=== PATIENT | female | born 1980 | race Two or more races ===

== ENCOUNTER → 2024-07-30 | Outpatient (CLI) | payer BC, SELFPAY ==
[2024-07-30 14:36] LABS: Basophils % (Auto) 1 % (0-2.5); Eosinophils # (Auto) 0.3 Thou/mm3 (0.0-0.5); Eosinophils % (Auto) 3 % (0-10); Hematocrit 36.6 % (36.0-46.0); Hemoglobin 12.6 g/dL (12.0-16.0); Immature Granulocytes % (Auto) 0 % (0-0); Immature Granulocytes Auto 0.02 Thou/mm3 (0.00-0.00); Lymphocytes # (Auto) 1.9 Thou/mm3 (1.0-4.8); Lymphocytes % (Auto) 25 % (10-50); Mean Corpuscular HGB Conc 34.4 g/dl (31.0-37.0); Mean Corpuscular Hemoglobin 33.8 pg (25.0-35.0); Mean Corpuscular Volume 98 fL (80-100); Monocytes # (Auto) 0.6 Thou/mm3 (0.0-0.8); Monocytes % (Auto) 8 % (0-12); Neutrophils # (Auto) 4.9 Thou/mm3 (1.8-7.7); Neutrophils % (Auto) 64 % (37-80); Nucleated Red Blood Cell % 0 /100 WBC (0); Platelet Count 105 Thou/mm3 (140-440); RDW Standard Deviation 45.6 fL (36.4-46.3); Red Blood Count 3.73 Miln/mm3 (4.00-5.20); White Blood Count 7.7 Thou/mm3 (3.6-11.0)
== END | disposition home or self-care (01) ==
LOC: COPL 13:28
PROVIDERS: PCP Family Medicine; Referring Provider Family Medicine; Visit Provider Family Medicine
DX: D50.0 Iron deficiency anemia secondary to blood loss (chronic) (principal)
CPT/HCPCS: 36415; 85025

== ENCOUNTER → 2024-08-26 | Outpatient (CLI) | payer BC, SELFPAY ==
[2024-08-26 11:44] LABS: Collection Type, Urine Clean Catch
[2024-08-26 12:42] LABS: Bacteria,Urine 2+; Bilirubin,Urine Negative (Negative); Blood,Urine 2+ (Negative); Color,Urine Yellow (Lt Yel-Yel); Glucose, Urine Negative (Negative); Hyaline Casts,Urine < 1 /hpf (0-1); Ketones,Urine 1+ (Negative); Leukocyte Esterase,Urine Positive (Negative); Nitrite,Urine Negative (Negative); Protein,Urine 1+ (Neg - Trace); RBC,Urine 17 /hpf (0-3); Specific Gravity,Urine 1.023 (1.001-1.035); Squamous Epithelial Cell,Urine 9 /hpf (0-5); Urobilinogen,Urine Negative mg/dL (0.0-1.0); WBC,Urine 189 /hpf (0-5)
[2024-08-26 13:01] LABS: Clarity,Urine Hazy (Clear/Hazy)
== END | disposition home or self-care (01) ==
LOC: SLDO 11:12
PROVIDERS: PCP Family Medicine; Referring Provider Family Medicine; Visit Provider Family Medicine
DX: N30.00 Acute cystitis without hematuria (principal)
CPT/HCPCS: 81001; 87077; 87086; 87186

== ENCOUNTER 2024-08-27 09:27 | Emergency (ER) | payer BC, SELFPAY ==
[2024-08-27] VITALS (44 sets, daily range): BP systolic 81–116; BP diastolic 50–75; PULSE 95–112; RESP 16–88; TEMP 36.6–37.6; O2SAT 86–100; BMI 31.1
--- NOTE | 2024-08-27 | XR_ITS ---
Examination: MRI brain without intravenous contrast. Date and time of exam: August 27, 2024 1355 hours INDICATIONS: Bilateral leg weakness and headaches onset today, CT brain scan August 27, 2024 11:09 AM brainstem infarct age-indeterminate Technique: Multiple axial and sagittal images of the brain obtained. Siemens high-resolution 1.5 Samia short bore scanners utilized. Sagittal sections, T1-weighted, TR 500, TE 14, are performed. Axial sections proton-density and T2-weighted have been obtained. Inversion recovery axial images, TR 9, 260, TE 111, TI 2500. Diffusion weighted images, axial sections, TR 4800, TE 128, B value 1000 Axial sections, ADC map, TR 4800, TE 128 Findings: Enlargement of the sella turcica is not present. The optic chiasm and infundibular are not remarkable. Prepontine and interpeduncular cisterns are not enlarged. There is no localized enlargement of the medulla or chuck. Fourth ventricle and cerebellar tonsils appear normal in position. No subacute area of hemorrhage density is seen. Mass in the cerebellopontine angle region is not evident. Globes symmetrical. Orbital musculature including medial lateral rectus muscles do not exhibit abnormality. Diffusion-weighted images demonstrate no focus of restricted diffusion. Increased white matter signal not seen Mass effect upon the ventricular system is not identified. Impression: No brainstem or other acute infarct is confirmed No MRI findings diagnostic for demyelinating disease
--- NOTE | 2024-08-27 09:44 | XR_ITS ---
Examination: AP chest single view TECHNIQUE: AP portable upright chest single view Exam date and time: August 27, 2024 1049 hours INDICATIONS: Shortness of breath today. FINDINGS: Reduced inspiratory effort Normal heart size Lungs are clear. Mild osteopenia IMPRESSION: No active disease
--- NOTE | 2024-08-27 09:44 | XR_ITS ---
Examination: CT brain head without contrast. 2-D sagittal coronal reconstructions Date and time of exam:August 27, 2024 1109 hours Comparison August 26, 2022 INDICATIONS: Mild asymmetric CT: Altered mental status today CTDI: vol (mGy):52.6 DLP: (mGycm):1076 Technique: Multiple CT axial sections of the brain have been obtained, 5 mm slice thickness. Contrast has not been administered. 2-D sagittal, coronal reconstructions have been obtained Low dose protocols were performed. One or more of the following dose reduction techniques were used; automated exposure control, adjustment of the mA and/or KV according to patient size, use of iterative reconstruction technique. Findings: No significant ventricular enlargement. 13 mm infarct left brainstem pontine level, age indeterminate, axial image 31 Intra-axial or extra-axial hemorrhage density is not seen. No mass effect or midline shift Basal cisterns are not remarkable. Fourth ventricle is midline. Cranial vault intact. 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
--- NOTE | 2024-08-27 09:46 | EKG_ITS ---
[facility] Test Date: 2024-08-27 Pat Name: DESTIN GALICIA Department: Room: - Gender: Female Pharmacy Picking Technician: : 1980 Requested By: Andrzej Elizondo Order Number: [id number] Reading MD: Andrzej Elizondo Measurements Intervals Addison Rate: 95 P: 52 DC: 146 QRS: -1 QRSD: 89 T: 17 QT: 349 QTc: 439 Interpretive Statements SINUS RHYTHM Compared to ECG 04/24/2022 13:55:43 No significant changes /store/S0/[id number].pdf
--- NOTE | 2024-08-27 09:50 | PD.EDABDPN ---
ED Abdominal Pain RME/HPI General Chief Complaint: Abdominal Pain Stated complaint: diffuse ab pain x 3 days, legs weak 10 pm 08/26/24 Time seen by provider: 08/27/24 09:34 Arrival date/time: 08/27/24 09:27 RME / HPI RME / HPI narrative: This section includes all my notes and documentations, including HPI, PE, and ED course.? Andrzej Iraheta MD HPI: 43 year old female with history of hypertension presents to the ED for evaluation of abdominal pain beginning 3 days ago. Described as aching in sensation that is located most across her lower abdomen, L>R. Reportedly had consulted with PCP yesterday who diagnosed her with a UTI and started on Ciprofloxacin which she took the first dose of yesterday. Patient additionally complains of pain in her back that radiates down her left leg. No injury or trauma. Reports subjective fever and chills and aches and severe malaise with severely decreased oral intake. Feels lightheaded and faint especially when she gets up. No other complaints. ROS: All negative except as documented in HPI. Physical Exam: General:? Alert and oriented.? Appearance of severe malaise noted. Eyes:? Conjunctivae and lids clear.? EOMI.? PERRL. ENT:? No nasal congestion.? Pharynx normal.? Tympanic membrane normal bilaterally.??? Neck:? Supple.? No carotid bruit.? No JVD.?? Heart:? RRR.? Lungs:? No respiratory distress.? Good air movement.? No rhonchi, wheezing, rales.?? Abdomen:? Soft with equivocal tenderness, difficult to localize.? Normal bowel sounds.? No distension.? No rebound or guarding.?? Back:? No CVA tenderness.?? Legs:? No clubbing, cyanosis, edema.? Skin:? Warm and dry.?? Neuro:? Alert and oriented X 3.? Cranial Nerves II-XII grossly intact.? No peripheral motor deficits. I reviewed all diagnostic test results. My interpretation of the EKG is?sinus rhythm with nonspecific ST?T changes. My interpretation of the chest x-ray is no acute findings. My review of the head CT report is?13 mm brainstem infarct. My review of the brain MRI report is no acute findings. My review of the chest/abdomen/pelvis CT report is left hydronephrosis secondary to 6 mm proximal left ureteral calculus. Blood tests remarkable for WBC 17.7, ESR 35, D-dimer > 3820, Cr 3.0, LA 4.9, Mg 1.1, CRP 19.6, BNP 211, procalcitonin 19.16, and negative troponin. ABG showed pH 7.31, pCO2 34, pHCO3 17. UA showed leukocyte esterase and many RBC, many WBC, and 3+ bacteria. COVID/influenza/RSV/strep/mono negative. At this point, diagnoses include: Sepsis, UTI (urinary tract infection), Left ureteral stone, Hypomagnesemia, BENNIE (acute kidney injury), Metabolic acidosis, Hypotension Treatment here included?IV fluid, Levophed drip, bicarb, MgSO4 2 gram IV, Rocephin, Toradol, and diazepam. At 6 PM on 08/27/2024, the care of the patient was transferred to Dr. MICHELE. Andrzej Iraheta MD Related Data Home Medications ?Medication ?Instructions ?Recorded ?Confirmed metoprolol tartrate 50 mg tablet 50 mg PO BID 06/06/24 06/06/24 Previous Rx's ?Medication ?Instructions ?Recorded ibuprofen 800 mg tablet 800 mg PO TID PRN pain #30 tabs 03/22/23 Allergies Allergy/AdvReac Type Severity Reaction Status Date / Time hydrocodone Allergy Mild Rash Verified 08/27/24 09:28 tranexamic acid Allergy Mild Vomiting Verified 08/27/24 09:28 morphine Allergy Rash Verified 08/27/24 09:28 Review of Systems Review of Systems Systems Reviewed: All systems reviewed, normal except as documented Past Medical History Past Medical History NEUROLOGIC: Positive Neurological Disorders and Migraine CARDIAC: Positive Hypertension GASTROINTESTINAL: Positive Gastrointestinal Disorders and Gall Bladder Disease GENITOURINARY: Positive Genitourinary Disorders and Kidney Stones REPRODUCTIVE: Positive Previous Pregnancies MUSCULOSKELETAL: Positive Musculoskeletal Disorders and Fractures OTHER HISTORY: Positive Falls and Chicken Pox Family History FAMILY HISTORY: Positive Family Cardiac Disorders and Family Surgery Surgical History SURGICAL: Negative Pacemaker Social History SMOKING STATUS: Never smoker SUBSTANCE USE: does not use ED Exam Narrative Physical exam: As noted in HPI Course Quality Measures Current suspected stage: septic shock (LA >4 and/or hypotension) IVF 30 ml/kg given for lactic acid >4 and/or hypotension: yes Vasopressors initiated: Yes Sepsis reassessment completed at (date): 08/27/24 Sepsis reassessment completed at (time): 12:13 Possible source: genitourinary Blood cultures ordered: completed in ED Antibiotic ordered: Yes Pertinent labs: 08/27/24 08/27/24 10:01 14:42 Lactic Acid 4.9 H* mMol/L 3.8 H mMol/L (0.4-2.0) (0.4-2.0) Procalcitonin 19.16 H ng/ml (0.0-0.49) sepsis Orders Category Date Time Status Bedside COVID-19 Antigen Test NOW Care 08/27/24 10:58 Completed Bedside Influenza A&B Antigen Test NOW Care 08/27/24 10:[address] Screening NOW Care 08/27/24 09:44 Completed EKG (ED ONLY) *Do not use* NOW Care 08/27/24 09:46 Completed Jerome [Urinary Catheter] QS Care 08/27/24 10:45 Completed MRI Screening NOW Care 08/27/24 12:06 Completed NPO NOW Care 08/27/24 22:20 Completed Saline [Insert IV] NOW Care 08/27/24 09:43 Completed Referral - Student Driving Instructor Stat Cons 08/27/24 14:32 Active Diet NPO (NOW) Diet 08/27/24 22:[address] chest abdomen pelvis wo Stat Exams 08/27/24 10:[address] head/brain wo con Stat Exams 08/27/24 09:44 Completed EKG (ED Only) Stat Exams 08/27/24 09:46 Draft MR head/brain wo con Stat Exams 08/27/24 Completed NM VQ scan Stat Exams 08/27/24 11:01 Ordered XR chest 1V portable Stat Exams 08/27/24 09:44 Completed ABG [Arterial Blood Gas] Stat Lab 08/27/24 10:47 Completed Alcohol, Blood Medical Stat Lab 08/27/24 10:01 Completed Ammonia Stat Lab 08/27/24 10:01 Completed Amylase Stat Lab 08/27/24 10:01 Completed BNP [B-Type Natriuretic Peptide] Stat Lab 08/27/24 10:01 Completed Blood Culture (Lab) Stat Lab 08/27/24 10:10 Received CBC Stat Lab 08/27/24 10:01 Completed CMP [Comprehensive Metabolic Panel] Stat Lab 08/27/24 10:01 Completed CRP [C-Reactive Protein] Stat Lab 08/27/24 10:01 Completed D-Dimer Stat Lab 08/27/24 10:01 Completed ESR [Sed Rate (ESR)] Stat Lab 08/27/24 10:01 Completed HCG,Qualitative Serum Stat Lab 08/27/24 10:01 Completed Lactate (Lactic Acid) Stat Lab 08/27/24 10:01 Completed Lactic Acid, 3 HR Stat Lab 08/27/24 14:42 Completed Lipase Stat Lab 08/27/24 10:01 Completed Magnesium Stat Lab 08/27/24 10:01 Completed Wayne Screen Stat Lab 08/27/24 10:01 Completed Procalcitonin Stat Lab 08/27/24 10:01 Completed RSV [Respiratory Syncytial Virus Ag] Stat Lab 08/27/24 15:07 Completed Strep A Rapid Stat Lab 08/27/24 15:07 Completed TSH [Thyroid Stimulating Hormone] Stat Lab 08/27/24 10:01 Completed Troponin I Stat Lab 08/27/24 10:01 Completed UA [Urinalysis] Stat Lab 08/27/24 10:46 Completed Diazepam Inj [Valium Inj] Med 08/27/24 14:26 Discontinued 5 mg IV X1 ONE Ketorolac Inj [Toradol Inj] Med 08/27/24 10:06 Discontinued 30 mg IVP X1 ONE Magnesium Sulfate 2 GM Ivpb [Magnesium Sulfate Ivpb] Med 08/27/24 10:59 Discontinued 2 gm in 50 ml IV X1 Norepinephrine/D5W 8mg/250ml [Levophed in D5W 8mg/250ml Med 08/27/24 11:43 Discontinued ] 8 mg in 250 ml IV 0.05 mcg/kg/min Norepinephrine/D5W 8mg/250ml [Levophed in D5W 8mg/250ml Med 08/27/24 12:09 Discontinued ] 8 mg in 250 ml IV 0.05 mcg/kg/min Ondansetron Inj [Zofran Inj] Med 08/27/24 10:06 Discontinued 4 mg IV X1 ONE Ondansetron Inj [Zofran Inj] Med 08/27/24 19:45 Discontinued 4 mg IV X1 ONE Sodium Bicarb 8.4% SYR Med 08/27/24 11:47 Discontinued 50 ml IV X1 ONE Sodium Chloride 0.9% 1000 ml [Ns] 1,000 ml Med 08/27/24 10:06 Discontinued IV 999 mls/hr Sodium Chloride 0.9% 1000 ml [Ns] 1,000 ml Med 08/27/24 10:16 Discontinued IV 999 mls/hr Sodium Chloride 0.9% 1000 ml [Ns] 1,000 ml Med 08/27/24 10:17 Discontinued IV 999 mls/hr Sodium Chloride 0.9% 1000 ml [Ns] 1,000 ml Med 08/27/24 13:40 Discontinued IV 999 mls/hr Vancomycin Inj 1,000 mg Med 08/27/24 18:24 Discontinued Sodium Chloride 0.9% 250 ml [Ns] 250 ml IV X1 Vancomycin Pharmacy to Dose Med 08/27/24 18:12 Discontinued 1 each IV X1 ONE Vancomycin/Ns 1 gm Ivpb 200 ml Med 08/27/24 18:30 Discontinued IV X1 cefTRIAXone/D5w 1gm IV premix [Rocephin/D5w 1gm IV Med 08/27/24 10:16 Discontinued premix] 50 ml IV X1 fentaNYL INJ [Sublimaze Inj] Med 08/27/24 19:45 Discontinued 100 mcg IVP X1 ONE Oxygen Delivery PRN RT 08/27/24 20:31 Completed Vital Signs Vital signs: Vital Signs Temperature 98.7 F 08/27/24 09:53 Pulse Rate 98 08/27/24 09:53 Respiratory Rate 22 H 08/27/24 09:53 Blood Pressure 90/60 08/27/24 09:53 Pulse Oximetry (%) 97 08/27/24 09:53 Oxygen Delivery Method Room Air 08/27/24 09:53 Pulse ox is 97% on room air which is adequate. Abdominal Pain MDM MDM Narrative MDM Narrative:: Olga Miller am scribing for and in the presence of Dr. Iraheta. Patient data External records reviewed:: [facility] previous records (I reviewed admission from 06/06/24 through 06/07/24) Clinical information provided by:: patient Social determinants that could affect healthcare access:: none Patient has the following chronic illnesses:: Hypertension How is presenting disease/condition affected by chronic disease/condition?: uneffected by Evaluation data The following diagnostics were reviewed and interpreted by me:: lab results, radiology exam(s) and EKG tracing(s) (My interpretation of the EKG: NSR (95 bpm) with no ST-T changes. Andrzej Iraheta MD) Lab and/or radiology exams considered but not ordered:: None Interpretation Summary: Sepsis, UTI (urinary tract infection), Left ureteral stone, Hypomagnesemia, BENNIE (acute kidney injury), Metabolic acidosis, Hypotension Medications / Prescriptions Medications or Prescriptions considered but not ordered:: None Medication administrations:: Medication Administration History Discontinued Medications Diazepam (Diazepam Inj 5 Mg/Ml Vial 2 Ml) 5 mg IV X1 ONE Stop: 08/27/24 14:27 Last Admin: 08/27/24 15:01 Dose: 5 mg Documented By: DO Fentanyl Citrate (Fentanyl Cit Inj 50 Mcg/Ml Amp 2ml) 100 mcg IVP X1 ONE Stop: 08/27/24 19:46 Last Admin: 08/27/24 20:00 Dose: 100 mcg Documented By: BB Sodium Chloride (Ns) 1,000 mls @ 999 mls/hr IV .Q1H1M ONE Stop: 08/27/24 11:06 Last Infusion: 08/27/24 11:00 Dose: Infused Documented By: Admin: 08/27/24 10:12 Dose: 999 mls/hr Documented By: EF Ceftriaxone Sodium/Dextrose (Rocephin/D5w 1gm Iv Premix) 50 mls @ 100 mls/hr IV X1 ONE Stop: 08/27/24 10:45 Last Infusion: 08/27/24 11:35 Dose: Infused Documented By: Admin: 08/27/24 10:41 Dose: 100 mls/hr Documented By: EF Sodium Chloride (Ns) 1,000 mls @ 999 mls/hr IV .Q1H1M ONE Stop: 08/27/24 11:16 Last Infusion: 08/27/24 11:40 Dose: Infused Documented By: Admin: 08/27/24 10:22 Dose: 999 mls/hr Documented By: EF Sodium Chloride (Ns) 1,000 mls @ 999 mls/hr IV .Q1H1M ONE Stop: 08/27/24 11:17 Last Infusion: 08/27/24 11:58 Dose: Infused Documented By: Admin: 08/27/24 10:57 Dose: 999 mls/hr Documented By: EF Magnesium Sulfate (Magnesium Sulfate Ivpb) 2 gm in 50 mls @ 25 mls/hr IV X1 ONE Stop: 08/27/24 12:58 Last Infusion: 08/27/24 13:40 Dose: Infused Documented By: Admin: 08/27/24 11:36 Dose: 25 mls/hr Documented By: EF Norepinephrine/Dextrose (Levophed In D5w 8mg/250ml) 8 mg in 250 mls @ 7.229 mls/hr IV .Q24H PRN; Protocol PRN Reason: PER PROTOCOL Stop: 09/26/24 11:42 Norepinephrine/Dextrose (Levophed In D5w 8mg/250ml) 8 mg in 250 mls @ 7.229 mls/hr IV .Q24H PRN; Protocol PRN Reason: PER PROTOCOL Stop: 09/26/24 12:08 Last Titration: 08/27/24 22:54 Dose: 0.09 mcg/kg/min, 13.012 mls/hr Documented By: Titration: 08/27/24 22:00 Dose: 0.09 mcg/kg/min, 13.012 mls/hr Documented By: Admin: 08/27/24 21:59 Dose: 0.09 mcg/kg/min, 13.012 mls/hr Documented By: Titration: 08/27/24 21:59 Dose: Infused Documented By: Titration: 08/27/24 21:00 Dose: 0.09 mcg/kg/min, 13.012 mls/hr Documented By: Titration: 08/27/24 20:00 Dose: 0.09 mcg/kg/min, 13.012 mls/hr Documented By: Titration: 08/27/24 19:00 Dose: 0.09 mcg/kg/min, 13.012 mls/hr Documented By: Titration: 08/27/24 18:00 Dose: 0.11 mcg/kg/min, 15.904 mls/hr Documented By: Titration: 08/27/24 17:00 Dose: 0.11 mcg/kg/min, 15.904 mls/hr Documented By: Titration: 08/27/24 16:00 Dose: 0.11 mcg/kg/min, 15.904 mls/hr Documented By: Titration: 08/27/24 15:00 Dose: 0.11 mcg/kg/min, 15.904 mls/hr Documented By: Titration: 08/27/24 13:43 Dose: 0.11 mcg/kg/min, 15.904 mls/hr Documented By: Titration: 08/27/24 13:38 Dose: 0.11 mcg/kg/min, 15.904 mls/hr Documented By: Titration: 08/27/24 13:33 Dose: 0.11 mcg/kg/min, 15.904 mls/hr Documented By: Titration: 08/27/24 13:16 Dose: 0.09 mcg/kg/min, 13.012 mls/hr Documented By: Titration: 08/27/24 13:11 Dose: 0.09 mcg/kg/min, 13.012 mls/hr Documented By: Titration: 08/27/24 12:21 Dose: 0.07 mcg/kg/min, 10.121 mls/hr Documented By: Titration: 08/27/24 12:16 Dose: 0.07 mcg/kg/min, 10.121 mls/hr Documented By: Titration: 08/27/24 12:11 Dose: 0.07 mcg/kg/min, 10.121 mls/hr Documented By: Admin: 08/27/24 12:06 Dose: 0.05 mcg/kg/min, 7.229 mls/hr Documented By: EF Sodium Chloride (Ns) 1,000 mls @ 999 mls/hr IV .Q1H1M ONE Stop: 08/27/24 14:40 Last Infusion: 08/27/24 14:41 Dose: Infused Documented By: Admin: 08/27/24 13:40 Dose: 999 mls/hr Documented By: DO Vancomycin HCl 1,000 mg/ (Sodium Chloride) 250 mls @ 150 mls/hr IV X1 ONE Stop: 08/27/24 20:03 Last Admin: 08/27/24 18:33 Dose: Not Given Documented By: DO Non-Admin Reason: Duplicate Medication on eMAR Vancomycin/Sodium Chloride (Vancomycin/Ns 1 Gm Ivpb) 200 mls @ 120 mls/hr IV X1 ONE Stop: 08/27/24 20:09 Last Infusion: 08/27/24 20:33 Dose: Infused Documented By: Admin: 08/27/24 18:37 Dose: 120 mls/hr Documented By: EF Ketorolac Tromethamine (Ketorolac Inj 30 Mg/Ml Vial) 30 mg IVP X1 ONE Stop: 08/27/24 10:07 Last Admin: 08/27/24 10:12 Dose: 30 mg Documented By: EF Ondansetron HCl (Ondansetron Inj 2 Mg/Ml Inj 2 Ml) 4 mg IV X1 ONE; Protocol Stop: 08/27/24 10:07 Last Admin: 08/27/24 10:11 Dose: 4 mg Documented By: EF Ondansetron HCl (Ondansetron Inj 2 Mg/Ml Inj 2 Ml) 4 mg IV X1 ONE Stop: 08/27/24 19:46 Last Admin: 08/27/24 20:25 Dose: 4 mg Documented By: BB Pharmacy Consult (Vancomycin Pharmacy To Dose 1 Each Each) 1 each IV X1 ONE Stop: 08/27/24 18:13 Last Admin: 08/27/24 18:28 Dose: Not Given Documented By: DO Non-Admin Reason: Duplicate Medication on eMAR Sodium Bicarbonate (Sodium Bicarb Inj 8.4% Syr 50 Ml Syringe) 50 ml IV X1 ONE Stop: 08/27/24 11:48 Last Admin: 08/27/24 12:16 Dose: 50 ml Documented By: EF See chart Consultations Consultation(s) initiated? (list below): No Consultation #1 (Physician, Specialty, Details): I spoke with transfer nurse at [facility]. Discussed patients PMHx, HPI, ED course, exam findings, labs, and radiology results. Waiting for their urologist to call back. Diagnosis Differential diagnosis abdominal pain: abdominal pain, acute appendicitis, calculus of kidney, constipation, diverticulitis, endometriosis, gastroenteritis, pancreatitis, small bowel obstruction and other (UTI, sepsis, pyelonephritis, CVA, CO) Most likely diagnosis given after review of the tests above:: Sepsis, UTI (urinary tract infection), Left ureteral stone, Hypomagnesemia, BENNIE (acute kidney injury), Metabolic acidosis, Hypotension Admission Indicated Admission indicated?: not indicated Explain why admission is indicated or not indicated:: No urology service here Admission Request Was there a request for admission?: No Disposition Plan Disposition Plan: Transfer Critical Care Time Critical Care Time Critical Care Time: Yes Total Critical Care Time (min.): 48 Attestation: Due to a high probability of clinically significant, life threatening deterioration, the patient required my highest level of preparedness to intervene emergently and I personally spent this critical care time directly and personally managing the patient. This critical care time included obtaining a history; examining the patient; ordering and review of studies; arranging urgent treatment with development of a management plan; evaluation of patient's response to treatment; frequent reassessment; and discussions with family and other providers. It was exclusive of separately billable procedures and treating other patients and teaching time. Andrzej Iraheta MD Discharge Plan Plan Patient Disposition: [facility] Being Transferred to: [facility] Service Needed for Transfer: Urology Disposition Comment: ED to ED, Dr. Grimes urology Prescriptions/Referrals Prescriptions/Med Rec: No Action ibuprofen 800 mg tablet 800 mg PO TID PRN (Reason: pain) Qty: 30 0RF metoprolol tartrate 50 mg tablet 50 mg PO BID Patient Comments: TAKE 1 TABLET BY MOUTH TWICE A DAY Referrals: Kellee Corea MD [Primary Care Provider] - In 1 week Problem List Clinical Impression: Sepsis, UTI (urinary tract infection), Left ureteral stone, Hypomagnesemia, BENNIE (acute kidney injury), Metabolic acidosis, Hypotension Patient/Caregiver Discharge Instructions Print Language: Cypriot Stand Alone Forms: [facility] Award Info., Patient Portal Info Letter
[2024-08-27] MEDS: ONDANSETRON INJ 2 MG/ML INJ 2 ML 4 MG IV ×2 (10:11→20:25)
[2024-08-27] MEDS: KETOROLAC INJ 30 MG/ML VIAL IVP (10:12)
[2024-08-27] MEDS: SODIUM CHLORIDE 0.9% 1000 ML 1,000 ML 999 ML IV ×4 (10:12→13:40)
[2024-08-27 10:14] LABS: Lactate (Lactic Acid) 4.9 mMol/L (0.4-2.0)
[2024-08-27 10:23] LABS: Basophils # (Auto) 0.1 Thou/mm3 (0.0-0.2); Basophils % (Auto) 1 % (0-2.5); Eosinophils # (Auto) 0.1 Thou/mm3 (0.0-0.5); Eosinophils % (Auto) 0 % (0-10); Hemoglobin 12.7 g/dL (12.0-16.0); Immature Granulocytes % (Auto) 5 % (0-0); Immature Granulocytes Auto 0.79 Thou/mm3 (0.00-0.00); Lymphocytes # (Auto) 0.8 Thou/mm3 (1.0-4.8); Lymphocytes % (Auto) 4 % (10-50); Mean Corpuscular HGB Conc 34.3 g/dl (31.0-37.0); Mean Corpuscular Hemoglobin 33.7 pg (25.0-35.0); Mean Corpuscular Volume 98 fL (80-100); Monocytes # (Auto) 0.9 Thou/mm3 (0.0-0.8); Monocytes % (Auto) 5 % (0-12); Neutrophils # (Auto) 15.2 Thou/mm3 (1.8-7.7); Neutrophils % (Auto) 86 % (37-80); Nucleated Red Blood Cell % 0 /100 WBC (0); Red Blood Count 3.77 Miln/mm3 (4.00-5.20); White Blood Count 17.7 Thou/mm3 (3.6-11.0)
[2024-08-27 10:24] LABS: Platelet Count 59 Thou/mm3 (140-440)
[2024-08-27 10:30] LABS: Sed Rate (ESR) 35 mm/hr (0-20)
[2024-08-27 10:34] LABS: D-Dimer > 3820 ng/mL (<600)
[2024-08-27 10:39] LABS: Alanine Aminotransferase 35 U/L (10-49); Albumin, Serum 3.6 gm/dL (3.5-5.0); Albumin/Globulin Ratio 1.1 (1.2-2.2); Alcohol, Blood Medical < 3.0 mg/dL (0-10.0); Alkaline Phosphatase 70 U/L (46-116); Ammonia < 10 uMol/L (11-32); Amylase 38 U/L (30-118); Anion Gap 9 (7-16); Aspartate Amino Transferase 79 U/L (0-34); BUN/Creatinine Ratio 14 Ratio (12-20); Bilirubin,Total 3.7 mg/dL (0.3-1.2); Blood Urea Nitrogen 41 mg/dL (9-23); C-Reactive Protein 19.6 mg/dL (0.0-0.9); Calcium 8.6 mg/dL (8.3-10.6); Calcium (Corrected) 8.9 mg/dL (8.5-10.1); Carbon Dioxide 20.3 mMol/L (20.0-31.0); Chloride 103 mMol/L (98-107); Estimated Creatinine Clearance 22.8 mL/min (>60); Globulin 3.3 gm/dL (2.3-3.5); Glucose 83 mg/dL (74-106); Lipase 42 U/L (12-53); Magnesium 1.1 mg/dL (1.6-2.6); Osmolality,Calculated 273 (275-295); Procalcitonin 19.16 ng/ml (0.0-0.49); Sodium 132 mMol/L (136-145); Thyroid Stimulating Hormone 3.58 uIU/mL (0.55-4.78); Total Protein 6.9 gm/dL (5.7-8.2); Troponin I < 0.002 ng/mL (0.0-0.045); eGFR 19 See Note
[2024-08-27 10:40] LABS: HCG,Qualitative Serum Negative
[2024-08-27] MEDS: cefTRIAXone/D5w 1gm IV premix 50 ML IV (10:41)
[2024-08-27 10:45] LABS: Slide Review Platelets confirmed
--- NOTE | 2024-08-27 10:48 | XR_ITS ---
Examination: CT chest, without intravenous contrast. CT abdomen, without intravenous contrast. CT pelvis, without intravenous contrast. 2-D sagittal and coronal reconstructions. 3-D reconstructions. Date and time of exam:August 27, 2024 1118 hours INDICATIONS: Shortness of breath chest pain abdominal pain today COMPARISON: CT abdomen pelvis March 22, 2023 CTDI vol (mgy) 9.80 DLP (MGycm)684 Technique: Multiple CT images, 3.0 mm slice thickness, obtained chest, abdomen, pelvis, with the high-resolution 64 slice scanner.. Sagittal and coronal 2-D reconstructions are obtained. 3-D reconstructions Low dose protocols were performed. One or more of the following dose reduction techniques were used; automated exposure control, adjustment of the mA and/or KV according to patient size, use of iterative reconstruction technique. Findings: No thoracic aortic aneurysm dilatation Pulmonary artery segments are not enlarged. No paratracheal tracheobronchial or bronchopulmonary adenopathy No pneumonia, pulmonary edema or pleural disease, no pulmonary nodules Fatty liver, hepatomegaly 16 cm, no focal liver lesions Absent gallbladder No splenic or pancreatic mass Bilateral renal calculi in the 2 to 4 mm range Mild left hydronephrosis secondary to 6 mm proximal left ureteral calculus Aorta normal size No bowel obstruction No pericecal inflammatory change No diverticulitis Retroverted uterus Urinary bladder contracted around a Jerome catheter IMPRESSION: No pneumonia, pulmonary edema or pleural disease Hepatomegaly, fatty liver Bilateral multiple renal calculi Mild left hydronephrosis secondary to 6 mm proximal left ureteral calculus
[2024-08-27 10:51] LABS: Base Excess -8 (-3-3); HCO3 17 mEq/L (20-26); Inspired Oxygen, FIO2 21 %; O2 Saturation 96 % (91-98); PCO2 34 mmHg (32.0-48.0); PO2 81 mmHg (83-108); pH, Arterial 7.31 (7.35-7.45)
[2024-08-27 10:54] LABS: Allen Test Performed/OK; Puncture Site Left Radial
[2024-08-27 10:55] LABS: Collection Type, Urine Clean Catch; Squamous Epithelial Cell,Urine 0 /hpf (0-5)
[2024-08-27 10:57] LABS: B-Type Natriuretic Peptide 211 pg/mL (0-100)
[2024-08-27 11:17] LABS: Bacteria,Urine 3+; Bilirubin,Urine 1+ (Negative); Blood,Urine 3+ (Negative); Color,Urine Drk-Orange (Lt Yel-Yel); Glucose, Urine Negative (Negative); Ketones,Urine Negative (Negative); Leukocyte Esterase,Urine Positive (Negative); Nitrite,Urine Negative (Negative); PH,Urine 6.5 (5.0-7.0); Protein,Urine 3+ (Neg - Trace); RBC,Urine 4440 /hpf (0-3); Specific Gravity,Urine 1.018 (1.001-1.035); WBC,Urine 3924 /hpf (0-5)
[2024-08-27 11:19] LABS: Clarity,Urine Cloudy (Clear/Hazy)
[2024-08-27 11:24] LABS: Band Neutrophils (Manual) 43 % (0-6); Eosinophils (Manual) 1 % (0-4); Lymphocytes (Manual) 2 % (20-44); Metamyelocytes (Manual) 11 % (0-0); Myelocytes (Manual) 3 % (0-0); Neutrophils (Manual) 43 % (50-70)
[2024-08-27] MEDS: Magnesium Sulfate 2 GM Ivpb 2 GM/50 ML BAG IV (11:36)
[2024-08-27] MEDS: Norepinephrine/D5W 8mg/250ml 8 MG/250 ML BAG 7.229 MG IV (12:06)
[2024-08-27] MEDS: Sodium Bicarb Inj 8.4% SYR 50 ML SYRINGE IV (12:16)
[2024-08-27 13:06] LABS: Reflex Lactate? Y
--- NOTE | 2024-08-27 14:25 | PC.NURSE ---
pt back from mri
--- NOTE | 2024-08-27 14:27 | PC.NURSE ---
900 urine output collected from [facility]
[2024-08-27 14:47] LABS: Lactic Acid, 3 HR 3.8 mMol/L (0.4-2.0)
--- NOTE | 2024-08-27 14:48 | PC.CM ---
Addendum entered by Marino Sanchez RN 08/27/24 18:46: 1845- Transfer request sent to [facility] and [facility] [place]. Transfer packet and disc provided to ER CN. Addendum entered by Marino Sanchez RN 08/27/24 17:59: 1759- Received call from ELIE Cole at [facility], she asked for update on patient, stated Urologist has reviewed patient's clinicals and she is awaiting on him to accept of decline transfer. She will call back after speaking with him. Addendum entered by Marino Sanchez RN 08/27/24 15:21: 1515-Received call from ELIE Cole at [facility]. She was connected with Dr. Iraheta in ER. Urologist at [facility] is reviewing case at this time. She will call back if they are able to accept. Addendum entered by Marino Sanchez RN 08/27/24 14:58: 1458- Phone call placed to [facility] to initiate transfer request, left voicemail message with contact information and details of our request. Addendum entered by Marino Sanchez RN 08/27/24 14:57: 1457- [facility] ELIE Freeman called to inform us they do not have urology services available so they are declining transfer at this time. Original Note: 9029- Received call from Dr. Iraheta in ER requesting transfer for urological services. States patient has a preference for [facility] if they can accept and have service available. Transfer packet started, disc with imaging created, clinicals sent to [facility] and [facility].
[2024-08-27] MEDS: DIAZEPAM INJ 5 MG/ML VIAL 2 ML IV (15:01)
[2024-08-27 15:58] LABS: Strep A Rapid Negative (Negative)
--- NOTE | 2024-08-27 16:04 | PC.NURSE ---
PT RESTING COMFORTABLE IN BED AT THIS TIME. NO DISTRESS NOTED. CALL LIGHT WITHIN REACH. AT BEDSIDE AND UPDATED
[2024-08-27 16:13] LABS: Respiratory Syncytial Virus Ag Negative (Negative)
[2024-08-27 16:16] LABS: Mono Screen Negative (Negative)
--- NOTE | 2024-08-27 18:35 | PC.NURSE ---
spoke with transfer nurse. still waiting for urologist from [place] to review chart. transfer nurse will update us when he hears from them.
[2024-08-27] MEDS: VANCOMYCIN/NS 1 GM IVPB 200 ML IV (18:37)
--- NOTE | 2024-08-27 18:55 | PC.NURSE ---
updated pt and on plan of care. pt in no apparent distress at this time. pt is requesting water. informed pt that I would need to ask er doctor if it is okay due to pt being transferred. informed them that ER doctor is in with another pt and when she is available I will ask. pt and verbalized understanding
--- NOTE | 2024-08-27 19:08 | PC.NURSE ---
patient given water okayed by dr dee
--- NOTE | 2024-08-27 19:27 | PC.NURSE ---
Received pt and report from Andres Louie RN. Pt in no distress at this time, resting in stretcher, and is at bedside. Levo and vanco infusing at this time. Patient and updated on plan of care for tonight. Awaiting transfer.
--- NOTE | 2024-08-27 19:34 | PD.EDADDENDU ---
Emergency Room Addendum <Ema Wilkins - Last Filed: 08/28/24 18:35> Addendum Narrative: 1800: Care assumed from Dr. Iraheta, the previous shift emergency physician. Past medical, surgical, social and family history reviewed. Vitals and home medications reviewed. I will assume the care of the patient at this time, pending transfer for urology. Please refer to the emergency department record for history and examination from initial visit.? Physical exam by me shows patient is in no acute distress. Hypotensive, 104.73, and febrile, mild fever of 99.6 F. D/W urologist Dr. Grimes who accepts the patient for transfer. Diagnoses: Sepsis, UTI, left ureteral stone, hypomagnesemia, BENNIE, metabolic acidoses, hypotension. <Hetal Henry MD - Last Filed: 08/27/24 21:35> Addendum Narrative: 1800: Care assumed from Dr. Iraheta, the previous shift emergency physician. Past medical, surgical, social and family history reviewed. Vitals and home medications reviewed. I will assume the care of the patient at this time, pending transfer for urology. Please refer to the emergency department record for history and examination from initial visit.? Physical exam by me shows patient under no acute distress at this time. D/W urologist Dr. Grimes who accepts the patient for transfer
[2024-08-27] MEDS: fentaNYL CIT INJ 50 mCg/ML AMP 2ML 100 MCG IVP (20:00)
--- NOTE | 2024-08-27 21:50 | PC.NURSE ---
2150,PT ACCEPTED TO [facility] BY DR HAAS, ER TO ER, REPORT #[id number]
[2024-08-27] MEDS: Norepinephrine/D5W 8mg/250ml 8 MG/250 ML BAG 13.012 MG IV (21:59)
--- NOTE | 2024-08-27 22:52 | PC.NURSE ---
report called to Ty [phone] [facility] ER-straw boss arrived at [phone] this nurse will be going with pt.
== END 2024-08-27 23:16 | disposition short-term general hospital (02) ==
PROVIDERS: Emergency Provider Emergency Medicine; PCP Family Medicine
DX: A41.9 Sepsis, unspecified organism (principal); N13.6 Pyonephrosis; N17.9 Acute kidney failure, unspecified; I95.9 Hypotension, unspecified; E87.20 Acidosis, unspecified; E83.42 Hypomagnesemia; R06.02 Shortness of breath; I10 Essential (primary) hypertension; Z75.1 Person awaiting admission to adequate facility elsewhere
CPT/HCPCS: 51702; 36415; 36600; 70450; 70551; 71045; 71250; 74176; 80053; 80320; 81001; 82140; 82150; 82803; 83605; 83690; 83735; 83880; 84145; 84443; 84484; 84703; 85025; 85379; 85652; 86140; 86308; 87040; 87077; 87186; 87400; 87634; 87651; 87811; 93005; 96361; 96365; 96366; 96367; 96374; 96375; 99291; J0696; J1885; J2405; J3010; J3360; J3370; J3475; J3490; J7030; G0480

== ENCOUNTER → 2024-09-13 | Outpatient (CLI) | payer BC, SELFPAY ==
[2024-09-13 11:04] LABS: Collection Type, Urine Clean Catch
[2024-09-13 11:29] LABS: Basophils # (Auto) 0.1 Thou/mm3 (0.0-0.2); Basophils % (Auto) 1 % (0-2.5); Eosinophils # (Auto) 0.2 Thou/mm3 (0.0-0.5); Eosinophils % (Auto) 3 % (0-10); Hematocrit 32.3 % (36.0-46.0); Hemoglobin 10.8 g/dL (12.0-16.0); Immature Granulocytes % (Auto) 0 % (0-0); Immature Granulocytes Auto 0.02 Thou/mm3 (0.00-0.00); Lymphocytes % (Auto) 33 % (10-50); Mean Corpuscular HGB Conc 33.4 g/dl (31.0-37.0); Mean Corpuscular Hemoglobin 32.5 pg (25.0-35.0); Mean Corpuscular Volume 97 fL (80-100); Monocytes # (Auto) 0.4 Thou/mm3 (0.0-0.8); Monocytes % (Auto) 7 % (0-12); Neutrophils # (Auto) 3.3 Thou/mm3 (1.8-7.7); Neutrophils % (Auto) 56 % (37-80); Nucleated Red Blood Cell % 0 /100 WBC (0); Platelet Count 151 Thou/mm3 (140-440); RDW Standard Deviation 46.8 fL (36.4-46.3); Red Blood Count 3.32 Miln/mm3 (4.00-5.20)
[2024-09-13 11:45] LABS: Alanine Aminotransferase 26 U/L (10-49); Albumin, Serum 3.3 gm/dL (3.5-5.0); Albumin/Globulin Ratio 0.9 (1.2-2.2); Alkaline Phosphatase 158 U/L (46-116); Anion Gap 9 (7-16); Aspartate Amino Transferase 51 U/L (0-34); BUN/Creatinine Ratio 19 Ratio (12-20); Bilirubin,Total 2.3 mg/dL (0.3-1.2); Blood Urea Nitrogen 13 mg/dL (9-23); Calcium 9.1 mg/dL (8.3-10.6); Calcium (Corrected) 9.7 mg/dL (8.5-10.1); Carbon Dioxide 23.3 mMol/L (20.0-31.0); Chloride 107 mMol/L (98-107); Creatinine (Component) 0.7 mg/dL (0.6-1.3); Globulin 3.7 gm/dL (2.3-3.5); Glucose 94 mg/dL (74-106); Osmolality,Calculated 277 (275-295); Sodium 139 mMol/L (136-145); eGFR > 60 See Note
[2024-09-13 11:55] LABS: Bilirubin,Urine Negative (Negative); Blood,Urine 3+ (Negative); Clarity,Urine Turbid (Clear/Hazy); Color,Urine Yellow (Lt Yel-Yel); Glucose, Urine Negative (Negative); Ketones,Urine Negative (Negative); Leukocyte Esterase,Urine Positive (Negative); Nitrite,Urine Negative (Negative); Protein,Urine Trace (Neg - Trace); RBC,Urine 230 /hpf (0-3); Specific Gravity,Urine 1.013 (1.001-1.035); Squamous Epithelial Cell,Urine 5 /hpf (0-5); Urobilinogen,Urine Negative mg/dL (0.0-1.0); WBC,Urine 59 /hpf (0-5)
== END | disposition home or self-care (01) ==
LOC: COPL 10:31
PROVIDERS: PCP Family Medicine; Referring Provider Family Medicine; Visit Provider Family Medicine
DX: N13.2 Hydronephrosis with renal and ureteral calculous obstruction (principal)
CPT/HCPCS: 36415; 80053; 81001; 85025; 87086

== ENCOUNTER 2024-09-29 08:57 | Emergency (ER) | payer BC, SELFPAY ==
[2024-09-29 09:09] VITALS: BP 142/92; PULSE 76; RESP 18; TEMP 36.8; O2SAT 98; BMI 29.6
--- NOTE | 2024-09-29 09:16 | XR_ITS ---
Examination: CT abdomen and pelvis without contrast. Coronal 3-D reconstructions. Sagittal 2-D reconstructions. Date and time of exam:September 29, 2024 1050 hours INDICATIONS: Diagnosis kidney stones, left-sided flank pain today CTDI: vol (mGy): 11.2 DLP: (mGycm): 624 Technique: Axial images of the abdomen have been obtained, 3 mm slice thickness Intravenous contrast material has not been administered. Low dose protocols were performed. One or more of the following dose reduction techniques were used; automated exposure control, adjustment of the mA and/or KV according to patient size, use of iterative reconstruction technique. Findings: Fatty infiltration throughout the liver, no focal liver or splenic lesions Absent gallbladder No pancreatic or adrenal mass Multiple bilateral renal calculi, the largest right kidney 4 mm Left ureteral stent satisfactory position, no significant hydronephrosis, 5 mm proximal left ureteral calculus Aorta normal size Normal appendix No bowel obstruction or diverticulitis Anteverted uterus Bladder wall thickening up to 4 mm no bladder calculi IMPRESSION: Interval bilateral renal calculi Left ureteral stent satisfactory position with no significant hydronephrosis 5 mm proximal left ureteral calculus adjacent to the left ureteral stent
--- NOTE | 2024-09-29 09:16 | PD.EDRME ---
Rapid Medical Screening Exam RME Arrival date/time: 09/29/24 08:57 44-year-old female presents emergency department today complaints of left flank pain patient reports history of stent placement patient has scheduled appointment to follow-up in [place] on Friday with her urologist Chief Complaint: Urogenital-Female Time Seen by Provider: 09/29/24 09:01 Vital signs: Vital Signs Temperature 98.3 F 09/29/24 09:09 Pulse Rate 76 09/29/24 09:09 Respiratory Rate 18 09/29/24 09:09 Blood Pressure 142/92 H 09/29/24 09:09 Pulse Oximetry (%) 98 09/29/24 09:09 Oxygen Delivery Method Room Air 09/29/24 09:09
[2024-09-29 09:53] LABS: Collection Type, Urine Clean Catch; RBC,Urine 0 /hpf (0-3); Squamous Epithelial Cell,Urine 0 /hpf (0-5); WBC,Urine 0 /hpf (0-5)
[2024-09-29 09:58] LABS: HCG Qualitative,Urine Negative
[2024-09-29 10:00] LABS: Amorphous Crystals,Urine Present (Absent); Bilirubin,Urine Negative (Negative); Blood,Urine 3+ (Negative); Color,Urine Orange (Lt Yel-Yel); Glucose, Urine Negative (Negative); Ketones,Urine Negative (Negative); Leukocyte Esterase,Urine Positive (Negative); Nitrite,Urine Positive (Negative); PH,Urine 6.5 (5.0-7.0); Protein,Urine 2+ (Neg - Trace); Urobilinogen,Urine Negative mg/dL (0.0-1.0)
[2024-09-29 10:01] LABS: Clarity,Urine Hazy (Clear/Hazy); Culture Indicated,Urine Yes
[2024-09-29 10:16] LABS: Basophils % (Auto) 0 % (0-2.5); Eosinophils # (Auto) 0.1 Thou/mm3 (0.0-0.5); Eosinophils % (Auto) 1 % (0-10); Immature Granulocytes % (Auto) 0 % (0-0); Immature Granulocytes Auto 0.02 Thou/mm3 (0.00-0.00); Lymphocytes # (Auto) 1.2 Thou/mm3 (1.0-4.8); Lymphocytes % (Auto) 25 % (10-50); Mean Corpuscular HGB Conc 34.4 g/dl (31.0-37.0); Mean Corpuscular Volume 96 fL (80-100); Monocytes # (Auto) 0.5 Thou/mm3 (0.0-0.8); Monocytes % (Auto) 10 % (0-12); Neutrophils % (Auto) 63 % (37-80); Nucleated Red Blood Cell % 0 /100 WBC (0); RDW Standard Deviation 50.8 fL (36.4-46.3); Red Blood Count 3.33 Miln/mm3 (4.00-5.20); White Blood Count 4.7 Thou/mm3 (3.6-11.0)
[2024-09-29 10:33] LABS: Alanine Aminotransferase 11 U/L (10-49); Albumin, Serum 3.7 gm/dL (3.5-5.0); Alkaline Phosphatase 125 U/L (46-116); Anion Gap 9 (7-16); Aspartate Amino Transferase 34 U/L (0-34); BUN/Creatinine Ratio 18 Ratio (12-20); Bilirubin,Total 3.3 mg/dL (0.3-1.2); Blood Urea Nitrogen 14 mg/dL (9-23); Calcium 9.9 mg/dL (8.3-10.6); Calcium (Corrected) 10.1 mg/dL (8.5-10.1); Carbon Dioxide 27.8 mMol/L (20.0-31.0); Chloride 103 mMol/L (98-107); Creatinine (Component) 0.8 mg/dL (0.6-1.3); Estimated Creatinine Clearance 82.5 mL/min (>60); Globulin 3.8 gm/dL (2.3-3.5); Glucose 124 mg/dL (74-106); Lipase 81 U/L (12-53); Osmolality,Calculated 280 (275-295); Potassium 3.3 mMol/L (3.4-5.1); Sodium 140 mMol/L (136-145); Total Protein 7.5 gm/dL (5.7-8.2); eGFR > 60 See Note
[2024-09-29 11:13] LABS: Platelet Count 77 Thou/mm3 (140-440); Slide Review Platelets confirmed
--- NOTE | 2024-09-29 12:14 | EDNOTE_ITS ---
<Statement entered by Hetal Henry MD - 09/29/24 16:28> As co-signing physician, I was present and available for consult prn. I concur with the plan and care as documented by the midlevel provider. ED Female Urogenital RME/HPI General Chief complaint: Urogenital-Female Stated complaint: BLEEDING/PAIN WITH URINATION; URINARY STENT X 1 MO Time Seen by Provider: 09/29/24 09:01 Arrival date/time: 09/29/24 08:57 RME / HPI RME / HPI Narrative: 44-year-old female presents emergency department today complaints of left flank pain patient reports history of stent placement patient has scheduled appointment to follow-up in [place] on Friday with her urologist. Patient is worried because he noticed some blood while urinating. Denies any fever denies any vomiting. Patient has a history of chronic elevation of total bili also. Denies any abdominal pain. Related Data Home Medications ?Medication ?Instructions ?Recorded ?Confirmed metoprolol tartrate 50 mg tablet 50 mg PO BID 06/06/24 06/06/24 Previous Rx's ?Medication ?Instructions ?Recorded ibuprofen 800 mg tablet 800 mg PO TID PRN pain #30 tabs 03/22/23 Allergies Allergy/AdvReac Type Severity Reaction Status Date / Time hydrocodone Allergy Mild Rash Verified 09/29/24 08:59 tranexamic acid Allergy Mild Vomiting Verified 09/29/24 08:59 morphine Allergy Rash Verified 09/29/24 08:59 Review of Systems Review of Systems Narrative Review of Systems: Review of system reviewed and within normal limits except mentioned in HPI ED Exam Narrative Physical exam: VITAL SIGNS: Reviewed. GENERAL APPEARANCE: Alert and interactive, follows commands, no acute distress, HEAD AND FACE: Non-traumatic. ENT: PERRL, pink conjunctivitis, eyelid no trauma, Mucous membrane moist. NECK: Supple, nontender, no nuchal rigidity. CHEST: No tenderness, no crepitus, no paradoxical movement, no retractions. LUNGS: Clear, well ventilated, symmetric, no rales, no wheezing, no ronchi, no stridor, good breath sounds bilaterally. HEART: Regular rate, regular rhythm, no murmur, no gallops. ABDOMEN: Soft, positive bowel sounds, nondistended, no guarding, nontender, no rebound, no masses, RECTAL: Deferred. GENITAL: Deferred. NEUROLOGICAL: Gross motor function intact sensory function intact, Appropriate for age. MUSCULOSKELETAL: low back nontender, full range of motion. EXTREMITIES: Nontender, full range of motion. SKIN: Color pink, dry, no rash, no lacerations, no abrasions, no contusions. LYMPHATICS: Deferred. Course Quality Measures none Orders Category Date Time Status CT abdomen pelvis wo con Stat Exams 09/29/24 09:16 Completed CBC Stat Lab 09/29/24 09:48 Completed Comprehensive Metabolic Panel Stat Lab 09/29/24 09:48 Completed HCG Qualitative,Urine Stat Lab 09/29/24 09:34 Completed Lipase Stat Lab 09/29/24 09:48 Completed UA, C/S IF [Urinalysis, C/S if Indicated] Stat Lab 09/29/24 09:34 Completed Urine Culture Stat Lab 09/29/24 09:34 Received Vital Signs Vital signs: Vital Signs Temperature 98.3 F 09/29/24 09:09 Pulse Rate 76 09/29/24 09:09 Respiratory Rate 18 09/29/24 09:09 Blood Pressure 142/92 H 09/29/24 09:09 Pulse Oximetry (%) 98 09/29/24 09:09 Oxygen Delivery Method Room Air 09/29/24 09:09 Urogenital - Female MDM Narrative MDM Narrative:: 44-year-old female presents emergency department today complaints of left flank pain patient reports history of stent placement patient has scheduled appointment to follow-up in [place] on Friday with her urologist. Patient is worried because he noticed some blood while urinating. Denies any fever denies any vomiting. Patient has a history of chronic elevation of total bili also. Denies any abdominal pain. Patient's workup today all came back unremarkable urinalysis there is no hematuria noted. Except for elevated total bili which is chronically elevated also. CT scan of the abdomen pelvis showed ureteral stent is in the right placement and working normal. Results discussed with the patient. Patient will see her urologist this coming Friday. Patient data External records reviewed:: None Clinical information provided by:: patient Social determinants that could affect healthcare access:: none Patient has the following chronic illnesses:: History of kidney stones, history of ureteral stent placement. How is presenting disease/condition affected by chronic disease/condition?: exacerbated by Evaluation data The following diagnostics were reviewed and interpreted by me:: lab results and radiology exam(s) Lab and/or radiology exams considered but not ordered:: None Interpretation Summary: Patient's workup today all came back unremarkable urinalysis there is no hematuria noted. Except for elevated total bili which is chronically elevated also. CT scan of the abdomen pelvis showed ureteral stent is in the right placement and working normal. Medications / Prescriptions Medications or Prescriptions considered but not ordered:: None Medication administrations:: None Consultations Consultation(s) initiated? (list below): No Diagnosis Urogenital Female Differential Diagnosis: urinary tract infection and other (Vaginal bleeding, hematuria, hyperbilirubinemia) Most likely diagnosis given after review of the tests above:: Vaginal bleeding, history of ureteral stent, hyperbilirubinemia Admission Indicated Admission indicated?: not indicated Explain why admission is indicated or not indicated:: Stable Admission Request Was there a request for admission?: No Disposition Plan Disposition Plan: Discharge Discharge Attestation Discharge Attestation: The patient and all family members were given an opportunity to ask questions and understood the discharge instructions. Discharge instructions specifically effects, indications for sooner follow up or return to the emergency department, and the expected course of current diagnosis. Patient condition: Stable Discharge Plan Plan Patient Disposition: HOME (Self Care) Disposition Comment: stable Prescriptions/Referrals Prescriptions/Med Rec: No Action ibuprofen 800 mg tablet 800 mg PO TID PRN (Reason: pain) Qty: 30 0RF metoprolol tartrate 50 mg tablet 50 mg PO BID Patient Comments: TAKE 1 TABLET BY MOUTH TWICE A DAY Referrals: Kellee Corea MD [Primary Care Provider] - In 1 week Problem List Clinical Impression: Vaginal bleeding, History of ureter stent, Hyperbilirubinemia Patient/Caregiver Discharge Instructions Discharge Activity: activity as tolerated Education Materials: Understanding Uterine Bleeding Additional Instructions: Thank you for the opportunity for serving you today. You are stable for discharged . You are advised to: Follow-up with your urologist as instructed Return to ED for worsening of symptoms Increase oral fluids Print Language: Cambodian Stand Alone Forms: [facility] Award Info., Patient Portal Info Letter PA/WRAPPER STITCHER Supervising Physician SHAINA/LACIE Supervising Physician: MD Carl
[2024-09-29 12:27] VITALS: BP 148/89; PULSE 70; RESP 18; TEMP 36.8; O2SAT 96
== END 2024-09-29 12:35 | disposition home or self-care (01) ==
PROVIDERS: Nurse Practitioner Primary Care; Emergency Provider Emergency Medicine; PCP Family Medicine
DX: N93.9 Abnormal uterine and vaginal bleeding, unspecified (principal); R10.9 Unspecified abdominal pain; E80.6 Other disorders of bilirubin metabolism; Z87.442 Personal history of urinary calculi; Z96.0 Presence of urogenital implants
CPT/HCPCS: 36415; 74176; 80053; 81001; 81025; 83690; 85025; 87077; 87086; 87186; 99284

== ENCOUNTER → 2024-10-01 | Outpatient (CLI) | payer BC, SELFPAY ==
[2024-10-01 14:52] LABS: Collection Type, Urine Clean Catch
[2024-10-01 15:21] LABS: Basophils # (Auto) 0.1 Thou/mm3 (0.0-0.2); Basophils % (Auto) 1 % (0-2.5); Eosinophils # (Auto) 0.1 Thou/mm3 (0.0-0.5); Eosinophils % (Auto) 1 % (0-10); Hematocrit 32.5 % (36.0-46.0); Hemoglobin 11.3 g/dL (12.0-16.0); Immature Granulocytes % (Auto) 0 % (0-0); Immature Granulocytes Auto 0.02 Thou/mm3 (0.00-0.00); Lymphocytes # (Auto) 2.2 Thou/mm3 (1.0-4.8); Lymphocytes % (Auto) 29 % (10-50); Mean Corpuscular HGB Conc 34.8 g/dl (31.0-37.0); Mean Corpuscular Hemoglobin 32.9 pg (25.0-35.0); Mean Corpuscular Volume 95 fL (80-100); Monocytes # (Auto) 0.8 Thou/mm3 (0.0-0.8); Monocytes % (Auto) 10 % (0-12); Neutrophils # (Auto) 4.4 Thou/mm3 (1.8-7.7); Neutrophils % (Auto) 58 % (37-80); Nucleated Red Blood Cell % 0 /100 WBC (0); Platelet Count 86 Thou/mm3 (140-440); RDW Standard Deviation 50.1 fL (36.4-46.3); Red Blood Count 3.43 Miln/mm3 (4.00-5.20); White Blood Count 7.6 Thou/mm3 (3.6-11.0)
[2024-10-01 15:28] LABS: Bacteria,Urine 4+; Bilirubin,Urine Negative (Negative); Blood,Urine 3+ (Negative); Glucose, Urine Negative (Negative); Hyaline Casts,Urine 2 /hpf (0-1); Ketones,Urine Trace (Negative); Leukocyte Esterase,Urine Positive (Negative); Nitrite,Urine Negative (Negative); PH,Urine 6.5 (5.0-7.0); Protein,Urine 2+ (Neg - Trace); RBC,Urine 51 /hpf (0-3); Specific Gravity,Urine 1.016 (1.001-1.035); Squamous Epithelial Cell,Urine 9 /hpf (0-5); Urobilinogen,Urine Negative mg/dL (0.0-1.0); WBC,Urine 773 /hpf (0-5)
[2024-10-01 15:29] LABS: Clarity,Urine Cloudy (Clear/Hazy); Color,Urine Lt-Yellow (Lt Yel-Yel)
[2024-10-01 15:35] LABS: Anion Gap 8 (7-16); BUN/Creatinine Ratio 16 Ratio (12-20); Blood Urea Nitrogen 14 mg/dL (9-23); Calcium 9.6 mg/dL (8.3-10.6); Carbon Dioxide 27.9 mMol/L (20.0-31.0); Chloride 103 mMol/L (98-107); Creatinine (Component) 0.9 mg/dL (0.6-1.3); Glucose 126 mg/dL (74-106); Osmolality,Calculated 280 (275-295); Sodium 139 mMol/L (136-145); eGFR > 60 See Note
[2024-10-01 15:42] LABS: INR 1.1 (0.9-1.3); Partial Thromboplastin Time 27.3 Seconds (22.0-36.0); Prothrombin Time 12.1 Seconds (9.0-12.2)
[2024-10-01 15:47] LABS: Glucose Estimated Average 82 mg/dL (80-131); Hemoglobin A1C 4.5 % Hgb (4.8-6.0)
== END | disposition home or self-care (01) ==
LOC: COPL 14:01
PROVIDERS: PCP Family Medicine; Referring Provider Surgery; Visit Provider Surgery
DX: Z01.818 Encounter for other preprocedural examination (principal)
CPT/HCPCS: 36415; 80048; 81001; 83036; 85025; 85610; 85730; 87077; 87086; 87186

== ENCOUNTER → 2024-12-10 | Outpatient (CLI) | payer BC, SELFPAY | END | disposition home or self-care (01) | LOC: SLDO 20:54 | PROVIDERS: Referring Provider Urology; Visit Provider Urology | DX: N39.0 Urinary tract infection, site not specified (principal) | CPT/HCPCS: 87077; 87086; 87186 ==

== ENCOUNTER 2025-05-18 19:09 | Emergency (ER) | payer BC, SELFPAY ==
[2025-05-18 19:10] VITALS: BMI 32.5
--- NOTE | 2025-05-18 19:13 | EKG_ITS ---
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1980 Requested By: ED Temporary Provider Order Number: [id number] Reading MD: ED Temporary Provider Measurements Intervals Alva Rate: 76 P: 37 MT: 145 QRS: -25 QRSD: 92 T: 4 QT: 380 QTc: 428 Interpretive Statements SINUS RHYTHM BORDERLINE LEFT AXIS DEVIATION [QRS AXIS < -20] LOW QRS VOLTAGE IN PRECORDIAL LEADS [QRS DEFLECTION < 1.0 mV IN CHEST LEADS] PATTERN CONSISTENT WITH PULMONARY DISEASE MODERATE VOLTAGE CRITERIA FOR LVH, CONSIDER NORMAL VARIANT [MEETS CRITERIA IN ONE OF: R(aVL), S(V1), R(V5), R(V5/V6)+S(V1)] Compared to ECG 08/27/2024 10:12:53 Low QRS voltage now present /store/S0/[id number].pdf
[2025-05-18 19:15] VITALS: BP 165/95; PULSE 77; RESP 24; TEMP 36.8; O2SAT 96
--- NOTE | 2025-05-18 19:28 | XR_ITS ---
Examination: PA chest single view Technique: Upright PA chest single view Date and time: June 07, 2025 at 1936 hrs., Comparison August 27, 2024 Indication: Chest pain shortness of breath beginning 2 days ago. Findings: Normal heart size. No pneumonia or pulmonary edema. The osseous structures are intact. Impression: No active disease.
--- NOTE | 2025-05-18 19:30 | PD.EDCHEST ---
ED Chest Pain RME/HPI General Chief Complaint: Chest Pain Stated Complaint: SOB, CHEST PAIN Time Seen by Provider: 05/18/25 19:28 Arrival date/time: 05/18/25 19:09 44F with history of HTN presents to ED with several hours of CP, SOB, shakiness, and N/V. Patient denies URI symptoms. Limitations: no limitations Related Data Home Medications ?Medication ?Instructions ?Recorded ?Confirmed metoprolol tartrate 50 mg tablet 50 mg PO BID 06/06/24 06/06/24 Previous Rx's ?Medication ?Instructions ?Recorded ibuprofen 800 mg tablet 800 mg PO TID PRN pain #30 tabs 03/22/23 Allergies Allergy/AdvReac Type Severity Reaction Status Date / Time hydrocodone Allergy Mild Rash Verified 09/29/24 08:59 tranexamic acid Allergy Mild Vomiting Verified 09/29/24 08:59 morphine Allergy Rash Verified 09/29/24 08:59 Review of Systems Review of Systems Systems Reviewed: All systems reviewed, normal except as documented Constitutional Constitutional: Reports system reviewed and no additional complaints, except as documented, Denies fever(s) and Denies headache(s) ENT Ears, Nose, Mouth, and Throat: Denies disequilibrium and Denies headache(s) Cardiovascular Cardiovascular: Reports system reviewed and no additional complaints, except as documented, Reports as per HPI, Denies chest pain and Reports dyspnea Respiratory Respiratory: Reports system reviewed and no additional complaints, except as documented, Denies cough and Reports dyspnea Gastrointestinal Gastrointestinal: Reports system reviewed and no additional complaints, except as documented, Reports as per HPI, Denies abdominal pain, Reports nausea and Reports vomiting Neurologic Neurologic: Reports system reviewed and no additional complaints, except as documented, Reports as per HPI, Denies confusion, Denies disequilibrium, Denies headache(s) and Reports tremor(s) Psychiatric Psychiatric: Denies confusion Past Medical History Past Medical History NEUROLOGIC: Positive Neurological Disorders and Migraine; Negative Seizures CARDIAC: Positive Hypertension; Negative Cardiac Disorders, Congestive Heart Failure, Edema, Cellulitis or Varicose Veins RESPIRATORY: Negative Chronic Obstructive Pulmonary Disease (COPD), Asthma, Pneumonia, Tuberculosis, Pulmonary Embolism or Sleep Apnea GASTROINTESTINAL: Positive Gastrointestinal Disorders and Gall Bladder Disease; Negative Hepatitis GENITOURINARY: Positive Genitourinary Disorders and Kidney Stones; Negative Renal Disease REPRODUCTIVE: Positive Previous Pregnancies MUSCULOSKELETAL: Positive Musculoskeletal Disorders and Fractures ENDOCRINE: Negative Endocrine Disorders, Diabetes Mellitus Type 1 or Diabetes Mellitus Type 2 HEMATOLOGIC: Negative Blood Disorders or Sickle Cell Disease OTHER HISTORY: Positive Falls and Chicken Pox; Negative Hospitalization, Autoimmune Disease, Shingles, Blood Transfusions, Blood Transfusion Reaction, Anesthesia Reactions, Chemotherapy, Radiation Therapy, MRSA, Measles, Mumps or Cancer Family History FAMILY HISTORY: Positive Family Cardiac Disorders and Family Surgery; Negative Family Psychiatric Problems, Family Respiratory Disorders, Family Gastrointestinal Problems, Family Cancer or Family Anesthesia Reaction Surgical History SURGICAL: Negative Pacemaker Social History SMOKING STATUS: Never smoker SUBSTANCE USE: does not use ED Exam General Limitations: Present no limitations General appearance: Present alert, in no apparent distress and anxious (crying) Head Head exam: Present atraumatic Eye Eye exam: Present normal appearance, PERRL and EOMI ENT ENT exam: Present normal exam, normal oropharynx and mucous membranes moist Neck Neck exam: Present normal inspection, full ROM and trachea midline Chest Chest inspection: Present normal inspection and symmetric chest wall rise Respiratory Respiratory exam: Present normal lung sounds bilaterally Cardiovascular Cardiovascular exam: Present regular rate, normal rhythm and normal heart sounds Abdominal Exam Abdominal exam: Present soft and normal bowel sounds Extremities Exam Extremities exam: Present normal inspection and full ROM Back Exam Back exam: Present normal inspection and full ROM Neurological Exam Neurological exam: Present alert, oriented X3 and CN II-XII intact Psychiatric Psychiatric exam: Present normal affect and normal mood Skin Skin exam: Present warm, dry, intact and normal color Course Quality Measures none Orders Category Date Time Status EKG (ED ONLY) *Do not use* NOW Care 05/18/25 19:13 Completed EKG (ED Only) Stat Exams 05/18/25 19:13 Draft XR chest 1V portable Stat Exams 05/18/25 19:28 Completed B-Type Natriuretic Peptide Stat Lab 05/18/25 19:56 Completed CBC Stat Lab 05/18/25 19:56 Completed Comprehensive Metabolic Panel Stat Lab 05/18/25 19:56 Completed D-Dimer Stat Lab 05/18/25 19:56 Completed Drug Screen,Urine Stat Lab 05/18/25 20:58 Completed HCG Qualitative,Urine Stat Lab 05/18/25 20:58 Completed Lipase Stat Lab 05/18/25 19:56 Completed Magnesium Stat Lab 05/18/25 19:56 Completed Troponin I Stat Lab 05/18/25 19:56 Completed Aspirin Med 05/18/25 19:33 Discontinued 325 mg PO X1 ONE Diazepam [Valium] Med 05/18/25 19:30 Discontinued 5 mg PO X1 ONE Vital Signs Vital signs: Vital Signs Temperature 98.2 F 05/18/25 19:15 Pulse Rate 77 05/18/25 19:15 Respiratory Rate 24 H 05/18/25 19:15 Blood Pressure 165/95 H 05/18/25 19:15 Pulse Oximetry (%) 96 05/18/25 19:15 Oxygen Delivery Method Room Air 05/18/25 19:15 O2 at 96% on RA and WNLs Chest Pain MDM Narrative MDM Narrative:: 44F with history of HTN presents to ED with several hours of CP, SOB, shakiness, and N/V. Patient denies URI symptoms. Physical exam reveals clear lungs and normal WOB. Patient is afebrile, alert, but anxious/crying. EKG is NSR. CXR unremarkable. No leukocytosis. CMP unremarkable. Bili and lipase mildly elevated, but appears to be baseline. Normal D-dimer. Normal initial trop pending delta. Patient AMA'd. Patient data External records reviewed:: [facility] previous records Clinical information provided by:: patient Social determinants that could affect healthcare access:: none Patient has the following chronic illnesses:: HTN How is presenting disease/condition affected by chronic disease/condition?: uneffected by Evaluation data The following diagnostics were reviewed and interpreted by me:: lab results, radiology exam(s) and EKG tracing(s) Lab and/or radiology exams considered but not ordered:: ordered Interpretation Summary: above Medications / Prescriptions Medications or Prescriptions considered but not ordered:: ordered Medication administrations:: Medication Administration History Discontinued Medications Aspirin (Aspirin 325 Mg Tablet) 325 mg PO X1 ONE Stop: 05/18/25 19:34 Last Admin: 05/18/25 19:49 Dose: 325 mg Documented By: Diazepam (Diazepam 5 Mg Tablet) 5 mg PO X1 ONE Stop: 05/18/25 19:31 Last Admin: 05/18/25 19:49 Dose: 5 mg Documented By: above Consultations Consultation(s) initiated? (list below): No Diagnosis Chest Pain Differential Diagnosis: fracture of rib, pneumothorax, stable angina, unstable angina pectoris, atypical chest pain, st elevation myocardial infarction, costochondritis, chest pain, biliary colic and other (PE, anxiety) Most likely diagnosis given after review of the tests above:: anxiety, atypical chest pain Admission Indicated Admission indicated?: not indicated Admission Request Was there a request for admission?: No Disposition Plan Disposition Plan: other (specify) (AMA'd) Discharge Plan Plan Patient Disposition: Left Against Medical Advice Prescriptions/Referrals Prescriptions/Med Rec: No Action ibuprofen 800 mg tablet 800 mg PO TID PRN (Reason: pain) Qty: 30 0RF metoprolol tartrate 50 mg tablet 50 mg PO BID Patient Comments: TAKE 1 TABLET BY MOUTH TWICE A DAY Referrals: Kellee Corea MD [Primary Care Provider] - In 1 week Problem List Clinical Impression: Atypical chest pain, Anxiety Patient/Caregiver Discharge Instructions Print Language: Uzbek PA/COMMUNICATION STUDIES PROFESSOR Supervising Physician PA/COMMUNICATION STUDIES PROFESSOR Supervising Physician: Dr. Iraheta
[2025-05-18] MEDS: DIAZEPAM 5 MG TABLET PO (19:49)
[2025-05-18 20:17] LABS: Basophils # (Auto) 0.1 Thou/mm3 (0.0-0.2); Basophils % (Auto) 1 % (0-2.5); Eosinophils # (Auto) 0.1 Thou/mm3 (0.0-0.5); Eosinophils % (Auto) 2 % (0-10); Hematocrit 38.9 % (36.0-46.0); Hemoglobin 13.4 g/dL (12.0-16.0); Immature Granulocytes Auto 0.01 Thou/mm3 (0.00-0.00); Lymphocytes # (Auto) 2.7 Thou/mm3 (1.0-4.8); Lymphocytes % (Auto) 34 % (10-50); Mean Corpuscular HGB Conc 34.4 g/dl (31.0-37.0); Mean Corpuscular Hemoglobin 32.9 pg (25.0-35.0); Mean Corpuscular Volume 96 fL (80-100); Monocytes # (Auto) 0.7 Thou/mm3 (0.0-0.8); Monocytes % (Auto) 8 % (0-12); Neutrophils # (Auto) 4.4 Thou/mm3 (1.8-7.7); Neutrophils % (Auto) 56 % (37-80); Nucleated Red Blood Cell # 0.00 Thou/mm3 (0.00-0.00); Nucleated Red Blood Cell % 0 /100 WBC (0); Platelet Count 117 Thou/mm3 (140-440); RDW Standard Deviation 43.1 fL (36.4-46.3); Red Blood Count 4.07 Miln/mm3 (4.00-5.20); White Blood Count 8.0 Thou/mm3 (3.6-11.0)
[2025-05-18 20:37] LABS: B-Type Natriuretic Peptide 22 pg/mL (0-100)
[2025-05-18 20:47] LABS: D-Dimer < 250 ng/mL (<600)
[2025-05-18 20:49] LABS: Alanine Aminotransferase 49 U/L (10-49); Albumin, Serum 4.0 gm/dL (3.5-5.0); Albumin/Globulin Ratio 1.2 (1.2-2.2); Alkaline Phosphatase 166 U/L (46-116); Anion Gap 12 (7-16); Aspartate Amino Transferase 114 U/L (0-34); BUN/Creatinine Ratio 12 Ratio (12-20); Bilirubin,Total 1.3 mg/dL (0.3-1.2); Blood Urea Nitrogen 11 mg/dL (9-23); Calcium 10.9 mg/dL (8.3-10.6); Calcium (Corrected) 10.9 mg/dL (8.5-10.1); Carbon Dioxide 26.9 mMol/L (20.0-31.0); Chloride 107 mMol/L (98-107); Creatinine (Component) 0.9 mg/dL (0.6-1.3); Estimated Creatinine Clearance 76.9 mL/min (>60); Globulin 3.4 gm/dL (2.3-3.5); Glucose 101 mg/dL (74-106); Lipase 71 U/L (12-53); Magnesium 1.5 mg/dL (1.6-2.6); Osmolality,Calculated 289 (275-295); Potassium 4.0 mMol/L (3.4-5.1); Sodium 146 mMol/L (136-145); Total Protein 7.4 gm/dL (5.7-8.2); Troponin I < 0.020 ng/mL (0.0-0.045); eGFR > 60 See Note
[2025-05-18 21:11] LABS: HCG Qualitative,Urine Negative
[2025-05-18 21:16] LABS: Amphetamine/Methamp Scrn,U Negative (Negative); Barbiturate Screen,Urine Negative (Negative); Benzodiazepines Screen,Urine Negative (Negative); Benzoylecgonine Screen, Ur Negative (Negative); Fentanyl Screen,Urine Negative (Negative); Opiate Screen,Urine Negative (Negative); THC Screen,Urine Negative (Negative)
--- NOTE | 2025-05-18 21:45 | PC.NURSE ---
PT SIGNED AMA FORM AT [id number]
== END 2025-05-18 21:47 | disposition left against medical advice (07) ==
PROVIDERS: Physician Assistant; Emergency Provider Emergency Medicine; PCP Family Medicine
DX: R07.89 Other chest pain (principal); F41.9 Anxiety disorder, unspecified; I10 Essential (primary) hypertension
CPT/HCPCS: 36415; 71045; 80053; 80307; 81025; 83690; 83735; 83880; 84484; 85025; 85379; 93005; 99284; A9270

== ENCOUNTER → 2025-05-20 | Outpatient (CLI) | payer BC, SELFPAY ==
[2025-05-20 12:31] LABS: Basophils # (Auto) 0.0 Thou/mm3 (0.0-0.2); Basophils % (Auto) 1 % (0-2.5); Eosinophils # (Auto) 0.2 Thou/mm3 (0.0-0.5); Eosinophils % (Auto) 4 % (0-10); Hematocrit 39.6 % (36.0-46.0); Hemoglobin 13.7 g/dL (12.0-16.0); Immature Granulocytes Auto 0.01 Thou/mm3 (0.00-0.00); Lymphocytes # (Auto) 2.2 Thou/mm3 (1.0-4.8); Lymphocytes % (Auto) 43 % (10-50); Mean Corpuscular HGB Conc 34.6 g/dl (31.0-37.0); Mean Corpuscular Hemoglobin 33.1 pg (25.0-35.0); Mean Corpuscular Volume 96 fL (80-100); Monocytes # (Auto) 0.5 Thou/mm3 (0.0-0.8); Monocytes % (Auto) 9 % (0-12); Neutrophils # (Auto) 2.2 Thou/mm3 (1.8-7.7); Neutrophils % (Auto) 43 % (37-80); Nucleated Red Blood Cell # 0.00 Thou/mm3 (0.00-0.00); Nucleated Red Blood Cell % 0 /100 WBC (0); Platelet Count 115 Thou/mm3 (140-440); RDW Standard Deviation 42.0 fL (36.4-46.3); Red Blood Count 4.14 Miln/mm3 (4.00-5.20); White Blood Count 5.1 Thou/mm3 (3.6-11.0)
[2025-05-20 12:42] LABS: Glucose Estimated Average 85 mg/dL (80-131); Hemoglobin A1C 4.6 % Hgb (4.8-6.0)
[2025-05-20 12:44] LABS: Iron 181 mcg/dL (50-170); Percent Iron Saturation 54 % (20-55); T4 (Thyroxine) 7.9 mcg/dL (4.5-10.9); Total Iron Binding Capacity 334 mcg/dL (250-425); Unsaturated Iron Binding 153 (225-295)
[2025-05-20 12:56] LABS: Alanine Aminotransferase 39 U/L (10-49); Albumin, Serum 4.0 gm/dL (3.5-5.0); Albumin/Globulin Ratio 1.3 (1.2-2.2); Alkaline Phosphatase 142 U/L (46-116); Anion Gap 12 (7-16); Aspartate Amino Transferase 76 U/L (0-34); BUN/Creatinine Ratio 16 Ratio (12-20); Bilirubin,Total 2.1 mg/dL (0.3-1.2); Blood Urea Nitrogen 14 mg/dL (9-23); Calcium 10.5 mg/dL (8.3-10.6); Calcium (Corrected) 10.5 mg/dL (8.5-10.1); Carbon Dioxide 27.2 mMol/L (20.0-31.0); Cardiac Risk Estimate 2.7 RATIO (3.7-5.6); Chloride 106 mMol/L (98-107); Cholesterol 147 mg/dL (132-200); Creatinine (Component) 0.9 mg/dL (0.6-1.3); Globulin 3.0 gm/dL (2.3-3.5); Glucose 91 mg/dL (74-106); HDL Cholesterol 54 mg/dL (40-60); LDL Cholesterol,Calculated 79 mg/dL (0-130); Osmolality,Calculated 289 (275-295); Potassium 4.1 mMol/L (3.4-5.1); Sodium 145 mMol/L (136-145); Thyroid Stimulating Hormone 1.57 uIU/mL (0.55-4.78); Total Protein 7.0 gm/dL (5.7-8.2); Triglycerides 72 mg/dL (30-150); eGFR > 60 See Note
[2025-06-13 07:10] LABS: Cortisol,total,LC/MS/MS* 5.1 mcg/dL
== END | disposition home or self-care (01) ==
LOC: COPL 11:12
PROVIDERS: PCP Family Medicine; Referring Provider Family Medicine; Visit Provider Family Medicine
DX: I10 Essential (primary) hypertension (principal); E66.811 Obesity, class 1; D64.9 Anemia, unspecified
CPT/HCPCS: 36415; 80053; 80061; 82533; 83036; 83540; 83550; 84436; 84443; 85025

== ENCOUNTER → 2025-05-27 | Outpatient (CLI) | payer BC, SELFPAY ==
--- NOTE | 2025-05-27 09:00 | XR_ITS ---
Examination: Abdomen sonogram, complete Date and time of exam: May 27, 2025, 0925 hours INDICATIONS: Right flank and lower abdominal pain 10 months, history kidney stones, 5 mm proximal left ureteral calculus on CT stone study September 29, 2024. Technique: Multiple real-time grayscale transabdominal sonographic images of the abdomen have been obtained. Findings: Absent gallbladder Normal common bile duct 0.5 cm Pancreatic head 3.1 cm Aorta not enlarged. Liver 13.4 cm fatty infiltration no focal liver lesions Normal hepatopedal portal venous flow Patent IVC Right kidney 11.8 cm cortex 1.6 cm Left kidney 10.0 cm cortex 1.5 cm Moderate renal parenchymal scar formation Spleen 10.5 cm IMPRESSION: Absent gallbladder Normal common bile duct
== END | disposition home or self-care (01) ==
PROVIDERS: PCP Family Medicine; Referring Provider Family Medicine; Visit Provider Family Medicine
DX: R10.9 Unspecified abdominal pain (principal); Z90.49 Acquired absence of other specified parts of digestive tract
CPT/HCPCS: 76700